=== PATIENT | female | born 1985 | race Caucasian/White ===

== ENCOUNTER → 2016-10-14 | Outpatient (CLI) | payer OTHER ==
[~2016-10-14] MED LIST: OMEG10007 PO; PRENTAB26 PO; RANI150T3 PO; SERT25TA PO
== END | disposition home or self-care (01) ==
LOC: C.LABSPEC 18:11
PROVIDERS: ATTEND Obstetrics & Gynecology
DX: Z34.03 Encounter for supervision of normal first pregnancy, third trimester (principal)

== ENCOUNTER 2016-10-23 03:32 | Outpatient (CLI) | payer OTHER ==
[~2016-10-23] VITALS: Ht 167.6 cm; Wt 65.5 kg
[2016-10-23 06:12] VITALS: Ht 167.6 cm; Wt 65.5 kg
[2016-10-23] MEDS ORDERED: PRENTAB26 PO (06:18)
[2016-10-23] MEDS ORDERED: SERT25TA PO (06:19)
[2016-10-23] MEDS ORDERED: OMEG10007 PO (06:21)
[2016-10-23] MEDS ORDERED: RANI150T3 PO (06:21)
--- NOTE | 2016-10-26 09:53 | EDITING REQUIRED CODING QUERY ---
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 Please assist us with the question(s) below: Coding Question: The patient received care in labor and delivery on 10/23/16 as noted within the record. Please document the diagnosis that is being addressed by the medication/treatment. Provider Response: DIAGNOSIS: Contractions (irregular) Thank you for your assistance, Liliana Severino - Liquor Maker
== END 2016-10-23 08:00 | disposition home or self-care (01) ==
LOC: C.OPB 03:32 → C.LD 03:34 → C.OPB 08:00
PROVIDERS: ATTEND Obstetrics & Gynecology
DX: O62.9 Abnormality of forces of labor, unspecified (principal); Z3A.38 38 weeks gestation of pregnancy

== ENCOUNTER 2016-10-23 17:39 | Outpatient (CLI) | payer OTHER ==
[~2016-10-23] VITALS: Ht 167.6 cm; Wt 65.0 kg
[~2016-10-23 17:39] MED LIST changes: +hydrOXYzine HCL 10 MG TAB PO SCH
[2016-10-23] MEDS ORDERED: LACTATED RINGER'S 1000ML 1,000 ML IV SCH (17:59)
[2016-10-23] MEDS ORDERED: LACTATED RINGER'S 1000ML 500 ML IV ONE (17:59)
[2016-10-23] MEDS ORDERED: PROMETHAZINE HCL INJ 25 MG in SODIUM CHLORIDE 0.9% 50ML 50 ML IV PRN (18:00)
[2016-10-23] MEDS ORDERED: BUTORPHANOL TARTRATE 1 MG/ML VIAL ONE (19:33)
[2016-10-23] MEDS ORDERED: PHENERGAN 25MG HOMEPACK PO ONE (20:45)
[2016-10-23] MEDS ORDERED: hydrOXYzine HCL 10 MG TAB PO PRN (20:45)
[2016-10-23] MEDS ORDERED: BUTORPHANOL TARTRATE 1 MG/ML VIAL IV ONE (21:00)
[2016-10-23 21:25] VITALS: Ht 167.6 cm; Wt 65.0 kg
== END 2016-10-23 21:02 | disposition home or self-care (01) ==
LOC: C.OPB 17:39 → C.LD 17:39 → C.OPB 21:02
PROVIDERS: ATTEND Obstetrics & Gynecology
DX: O62.9 Abnormality of forces of labor, unspecified (principal); Z3A.38 38 weeks gestation of pregnancy

== ENCOUNTER 2016-10-24 08:40 | Inpatient (IN) | payer OTHER ==
[~2016-10-24] VITALS: Ht 165.1 cm; Wt 65.8 kg
[~2016-10-24 08:40] MED LIST changes: -hydrOXYzine HCL 10 MG TAB PO SCH
[2016-10-24] MEDS ORDERED: BUPIVACAINE 0.25% 30 ML VIAL ONE (09:05)
[2016-10-24] MEDS ORDERED: EpHEDrine SULFATE INJ 50 MG/ML AMP ONE (09:05)
[2016-10-24] MEDS ORDERED: FENTANYL 2MCG/ML ROPIV 1.25MG/ML 100ML BAG EPI ONE (09:06)
[2016-10-24] MEDS ORDERED: FENTANYL CITRATE INJ 50 MCG/1 ML 2 ML VIAL ONE (09:06)
[2016-10-24] MEDS ORDERED: LACTATED RINGER'S 1000ML 1,000 ML IV PRN (09:08)
[2016-10-24] MEDS: LACTATED RINGER'S 1000ML 1,000 ML IV SCH ×2 (09:15→11:10)
[2016-10-24 09:30] LABS: HEMATOCRIT 38.9 % (37-47); MEAN CORPUSCULAR HEMOGLOBIN 31.7 pg (25-34); MEAN CORPUSCULAR HGB CONC 35.2 g/dl (32-36); MEAN PLATELET VOLUME 12.8 fL (7.4-10.4); PLATELET COUNT 137 K/uL (130-400); RED BLOOD COUNT 4.32 M/uL (4.2-5.4); WHITE BLOOD COUNT 12.58 K/uL (4.8-10.8)
[2016-10-24] MEDS ORDERED: LACTATED RINGER'S 1000ML 500 ML IV PRN (10:09)
[2016-10-24] MEDS ORDERED: NALOXONE HCL INJ 1 MG in SODIUM CHLORIDE 0.9% 1000ML 1,000 ML IV PRN ×4 (10:09)
[2016-10-24] MEDS ORDERED: NALOXONE HCL INJ 0.4 MG/1 ML VIAL/CARP IV PRN (10:15)
[2016-10-24] MEDS ORDERED: EpHEDrine SULFATE INJ 50 MG/ML AMP IV PRN (10:15)
[2016-10-24] MEDS ORDERED: FENTANYL 2MCG/ML ROPIV 1.25MG/ML 100ML BAG EPI PRN (10:15)
[2016-10-24] MEDS ORDERED: ONDANSETRON INJ 2 MG/ML 2 ML VIAL IV PRN (10:15)
[2016-10-24] MEDS ORDERED: DiphenhydrAMINE HCL 50 MG/ML VIAL IV PRN (10:15)
[2016-10-24] MEDS ORDERED: NALBUPHINE HCL INJ 10 MG/ML AMP IV PRN (10:15)
[2016-10-24] MEDS ORDERED: PROMETHAZINE HCL INJ 25 MG in SODIUM CHLORIDE 0.9% 50ML 50 ML IV PRN (10:15)
[2016-10-24 10:38] VITALS: Ht 165.1 cm; Wt 65.8 kg
[2016-10-24] MEDS ORDERED: CALCIUM CARBONATE 500 MG CHEWABLE ONE (11:29)
[2016-10-24] MEDS ORDERED: CALCIUM CARBONATE 500 MG CHEWABLE PO PRN (11:30)
[2016-10-24] MEDS ORDERED: OXYTOCIN 30 UNITS/500ML NSS IV ONE (13:54)
[2016-10-24] MEDS ORDERED: METHYLERGONOVINE MALEATE 0.2 MG/ML AMP ONE (14:57)
[2016-10-24] MEDS ORDERED: BENZOCAINE 20% AER SPR 82.5 GM CAN EXT PRN (15:15)
[2016-10-24] MEDS ORDERED: ACETAMINOPHEN 325 MG TAB PO PRN (15:15)
[2016-10-24] MEDS ORDERED: HYDROCORTISONE ACETATE 25 MG SUPP PR PRN (15:15)
[2016-10-24] MEDS ORDERED: SUPERCREAM 0.870 % 15GM JAR EXT PRN (15:15)
[2016-10-24] MEDS ORDERED: OXYCODONE/ACETAMINOPHEN 5-325 TAB PO PRN (15:15)
[2016-10-24] MEDS ORDERED: ACETAMINOPHEN/CODEINE 300/30MG TAB PO PRN ×2 (15:15)
[2016-10-24] MEDS ORDERED: DIPHTHERIA/TETANUS/PERTUSSIS 0.5 ML SYR/VIAL IM. ONE (15:15)
[2016-10-24] MEDS ORDERED: OXYTOCIN 30 UNITS/500ML NSS IV PRN (15:15)
[2016-10-24] MEDS ORDERED: LANOLIN OINT EXT PRN ×2 (15:15)
[2016-10-24] MEDS ORDERED: METHYLERGONOVINE MALEATE 0.2 MG/ML AMP IM SCH (15:30)
--- NOTE | 2016-10-24 15:37 | DELIVERY SUMMARY ---
DATE OF OPERATION: 10/24/2016 PREOPERATIVE DIAGNOSES: 1. Intrauterine at 38 and 2/7 weeks. 2. Active labor. POSTOPERATIVE DIAGNOSES: Same. PROCEDURES: 1. Epidural anesthesia. 2. Amniotomy. 3. Normal spontaneous vaginal delivery. SURGEON: Dr. Kaur. ANESTHESIA: Epidural. ESTIMATED BLOOD LOSS: 350 mL. DETAILS OF PROCEDURE: After a prolonged latent phase of labor, the patient presented to labor and delivery. I think she might have ruptured her bag of water but was found to be 5-6 cm dilated. She was admitted and underwent an epidural anesthesia. When she was 6-7 cm dilated, she underwent amniotomy for clear fluid. She became complete complete and +2 station. She labored down for 45 minutes and then pushed for less than 30 minutes to deliver a viable male in TADEO presentation. The nose and mouth were bulb suctioned. There was no nuchal cord. The rest of the infant was then delivered without difficulty. The nose and mouth were again bulb suctioned. The was placed on the maternal abdomen where the cord was clamped and cut. Cord blood was collected for the lab as well as for donation. Placenta was delivered spontaneously intact with a 3-vessel cord. Cervix, sulci, rectum and perineum were examined and found to be intact. Estimated blood loss was 350 mL. Hemostasis was obtained with dilute Pitocin, fundal massage and IM Methergine. Apgars were 8 and 9. Mother and baby doing well at the end of the delivery. I attest to the content of the Intraoperative Record and any orders documented therein. Any exceptio ns are noted below.
--- NOTE | 2016-10-24 16:56 | Anesthesia Procedure Note ---
Anesthesia Epidural Removal Nt Date & Time Oct 24, 2016 at 16:55 Vital Signs Pain Intensity: 0.0 Notes Mental Status: alert / awake / arousable, participated in evaluation Nausea / Vomiting: adequately controlled Pain: adequately controlled Airway Patency, RR, SpO2: stable & adequate BP & HR: stable & adequate Hydration State: stable & adequate Neuraxial Anesthesia: was administered Anesthetic Complications: no major complications apparent, pt satisfied with anesthetic care Epidural: removed without complications, with tip intact
[2016-10-24] MEDS: IBUPROFEN 600 MG TAB PO PRN (18:03)
[2016-10-24 18:10] VITALS: BP 116/72; PULSE 74; TEMP 36.5; O2SAT 99
[2016-10-24] MEDS: DOCUSATE SODIUM 100 MG CAP PO SCH (20:02)
[2016-10-24 20:10] VITALS: BP 110/73; PULSE 86; TEMP 36.7
[2016-10-24] MEDS ORDERED: NURSING VERBAL MED ORDER ONE (20:30)
[2016-10-24] MEDS: SERTRALINE HCL 50 MG TAB PO SCH (21:19)
[2016-10-24 23:35] VITALS: BP 117/82; PULSE 76; TEMP 36.6
[2016-10-25] MEDS: IBUPROFEN 600 MG TAB PO PRN ×2 (03:27→08:55)
[2016-10-25 03:30] VITALS: BP 117/75; PULSE 70; TEMP 36.6
[2016-10-25] MEDS ORDERED: CALCIUM CARBONATE 500 MG CHEWABLE PO PRN (03:45)
[2016-10-25] MEDS ORDERED: NURSING VERBAL MED ORDER ONE (03:45)
--- NOTE | 2016-10-25 06:48 | Progress Note ---
Subjective Oct 25, 2016. Subjective conversation w/ patient, physical exam, lab review Ambulation: ambulating normally Voiding: no voiding problems Passing Gas: Yes Diet Tolerance: Regular Diet Lochia: Small Feeding Type: Breast Feeding Pain: controlled Objective Vital Signs Date Time Temp Pulse Resp B/P Pulse Ox O2 Delivery O2 Flow Rate FiO2 10/25/16 03:30 36.6 70 20 117/75 10/24/16 23:35 36.6 76 16 117/82 Room Air 10/24/16 20:10 36.7 86 20 110/73 Room Air 10/24/16 18:10 36.5 74 16 116/72 99 Room Air Physical Exam General Appearance: WD/WN, NO APPARENT DISTRESS Respiratory/Chest: lungs clear, normal breath sounds Cardiovascular: regular rate, rhythm Abdomen: normal bowel sounds, non tender, soft Fundus: Firm, Non-Tender, Relation to Umbilicus (at u) Extremities: non-tender, normal inspection Laboratory Results Last 24 Hours Test 10/24/16 09:12 10/24/16 09:23 10/24/16 12:36 10/25/16 04:44 Bedside Glucose 120 mg/dl 89 mg/dl White Blood Count 12.58 K/uL Red Blood Count 4.32 M/uL Hemoglobin 13.7 g/dL Hematocrit 38.9 % Mean Corpuscular Volume 90.0 fL Mean Corpuscular Hemoglobin 31.7 pg Mean Corpuscular Hemoglobin Concent 35.2 g/dl RDW Standard Deviation 41.4 fL RDW Coefficient of Variation 12.6 % Platelet Count 137 K/uL Mean Platelet Volume 12.8 fL Assessment and Plan Post- Day#: 1 Continue Routine Care: Doing well. Routine care.
[2016-10-25 06:57] LABS: HEMATOCRIT 35.4 % (37-47)
[2016-10-25 07:50] VITALS: BP 106/71; PULSE 76; TEMP 36.3; O2SAT 97
[2016-10-25] MEDS: DOCUSATE SODIUM 100 MG CAP PO SCH ×2 (08:59→20:47)
[2016-10-25] MEDS: PRENATAL VITAMIN TAB PO SCH (08:59)
[2016-10-25 11:31] VITALS: BP 112/76; PULSE 79; TEMP 36.7; O2SAT 99
[2016-10-25 15:30] VITALS: BP 118/81; PULSE 75; TEMP 36.5
[2016-10-25] MEDS: SERTRALINE HCL 50 MG TAB PO SCH (20:48)
[2016-10-26 00:05] VITALS: BP 107/74; PULSE 74; TEMP 36.8; O2SAT 98
[2016-10-26] MEDS: IBUPROFEN 600 MG TAB PO PRN ×2 (00:11→08:21)
--- NOTE | 2016-10-26 06:54 | Progress Note ---
Subjective Oct 26, 2016. Subjective conversation w/ patient, physical exam Ambulation: ambulating normally Voiding: no voiding problems Passing Gas: Yes Diet Tolerance: Regular Diet Lochia: Small Feeding Type: Breast Feeding Pain: No pain reported this morning Review of Systems Constitutional: No chills, No fever Respiratory: No cough, No shortness of breath Cardiac: No chest pain Breast: No breast pain Abdomen: No nausea, No pain, No vomiting Female : No dysuria Objective Vital Signs Date Time Temp Pulse Resp B/P Pulse Ox O2 Delivery O2 Flow Rate FiO2 10/26/16 00:05 98 Room Air 10/26/16 00:05 36.8 74 16 107/74 98 Room Air 10/25/16 15:30 36.5 75 20 118/81 Room Air 10/25/16 15:30 Room Air 10/25/16 11:31 36.7 79 15 112/76 99 Room Air 10/25/16 07:50 Room Air 10/25/16 07:50 36.3 76 16 106/71 97 Room Air Physical Exam General Appearance: WELL-APPEARING, WD/WN, NO APPARENT DISTRESS Respiratory/Chest: lungs clear, normal breath sounds Cardiovascular: regular rate, rhythm, no gallop, no murmur Abdomen: non tender, soft Fundus: Firm, Relation to Umbilicus (1cm below) Extremities: no calf tenderness Medications Current Inpatient Medications Medications (Trade) Dose Ordered Sig/Marylou Route Start Time Stop Time Status Last Admin Dose Admin Oxytocin (Pitocin IV) 30 units UD PRN IV 10/24/16 15:15 11/23/16 15:14 Benzocaine (Dermoplast Aero Spr) 1 appln PRN PRN EXT 10/24/16 15:15 11/23/16 15:14 Cocaine HCl (Supercream 0.870% Cr) BID PRN EXT 10/24/16 15:15 11/07/16 15:14 Hydrocortisone Acetate (Anusol Hc Supp) 25 mg BID PRN TN 10/24/16 15:15 11/23/16 15:14 Lanolin (Lanolin Oint) PRN PRN EXT 10/24/16 15:15 11/23/16 15:14 Prenat Multivit/ 5Th Grade Teacher/Iron/Folic Ac ( Vitamin Tab) 1 tab DAILY PO 10/25/16 08:00 11/24/16 07:59 10/25/16 08:59 1 TAB Ibuprofen (Motrin Tab) 600 mg Q4H PRN PO 10/24/16 15:15 11/23/16 15:14 10/26/16 00:11 600 MG Acetaminophen (Tylenol Tab) 650 mg Q6H PRN PO 10/24/16 15:15 11/23/16 15:14 Acetaminophen/ Codeine Phosphate (Tylenol w/ Codeine #3 Tab) 1 tab Q4H PRN PO 10/24/16 15:15 11/23/16 15:14 Acetaminophen/ Codeine Phosphate (Tylenol w/ Codeine #3 Tab) 2 tab Q4H PRN PO 10/24/16 15:15 11/23/16 15:14 Docusate Sodium (coLACE CAP) 100 mg BID PO 10/24/16 20:00 11/23/16 19:59 10/25/16 20:47 100 MG Sertraline HCl (Zoloft Tab) 25 mg QPM PO 10/24/16 21:00 11/23/16 20:59 10/25/16 20:48 25 MG Calcium Carbonate (Tums Chew Tab) 1,000 mg PRN PRN PO 10/25/16 03:45 11/24/16 03:44 10/25/16 05:33 1,000 MG Assessment and Plan Post- Day#: 2 Continue Routine Care: - Vital Signs reviewed and WNL (temp max 36.8) - Blood Type: A-, GBS Negative, Rubella Immune - Patient doing well clinically - Encourage Ambulation today - Tolerating PO Diet - Pain well controlled - Discharge Resident Physician Supervision Note: I interviewed and examined the patient. Discussed with Dr. Chacon and agree with findings and plan as documented in the note. Any exceptions or clarifications are listed here: PPD#2, doing well. Discharge home Documented By: Judith Massey
--- NOTE | 2016-10-26 06:55 | Discharge Instructions ---
Discharge Instructions Admission Reason for Admission: R/O Ruptured Membrane Discharge Discharge Diagnosis / Problem: Vaginal Delivery Discharge Goals Goal(s): Routine recovery after delivery Medications Continue Dispensed Medications: supercream, dermaplast, tucks, lansinoh Activity Recommendations Activity Limitations: per Instructions/Follow-up section . Instructions / Follow-Up Instructions / Follow-Up ACTIVITY RECOMMENDATIONS: * Gradual return to full activity over the next 2-3 weeks. * No lifting - nothing heavier than baby over the next 2-3 weeks. * Do not engage in vigorous exercise, sexual activity or sports until cleared by your physician. * Do not drive or operate any motorized equipment until cleared by your physician. * You may shower/bathe daily. MEDICATIONS: For discomfort or pain, you may use Acetaminophen (Tylenol), Ibuprofen (Advil), or Naproxen (Aleve) following the package directions. For constipation you may use Colace following the package directions. BREAST CARE: If you are not breast feeding: * Wear a supportive bra 24 hours a day for one to two weeks. * Avoid stimulating your breasts and nipples as much as possible during the first few weeks after delivery. * When taking a shower, have the warm water hit your back, not breasts. * When your breasts feel full, apply ice packs. Usually three to four times a day helps ease the discomfort. * Take a mild pain medication (Tylenol / Motrin) when you are uncomfortable. If breast feeding: * Use breast milk to lubricate nipples. Lansinoh cream may be used for sore nipples. You do not need to remove cream prior to breast feeding. If using a different brand of cream, check the label for directions regarding removal of cream prior to nursing. * Wear a supportive bra. * If having problems with breasts or breast feeding, call a outbound sales consultant or your health care provider. EPISIOTOMY CARE: After delivery, if you have an episiotomy (stitches), the following steps will ease discomfort and aid healing. * For the first 24 hours after delivery, place ice packs next to your episiotomy to help reduce swelling. * After the first 24 hour-period, sitz baths, either portable or in the tub, are suggested. A shower with a shower arm sprayed over the episiotomy may be comforting. * Leslee care should be done after each voiding and bowel movement. Squirt warm water from a plastic bottle over the perineum (region of the body between the anus and urinary opening) and pat dry. * Use Dermoplast to ease discomfort. Shake container. [place] directly over the episiotomy. Place a Tucks on a clean sanitary pad next to your episiotomy. SPECIAL CARE INSTRUCTIONS: When you are discharged from the hospital, it is important for you to follow the instructions listed below: * During the first week at home, you should be able to care for yourself and your baby. In addition, the usual light household activities are encouraged. * Limit your activities to the way you feel. Do not try to clean the house or move furniture. Be sensible. * If you actively engage in sports and have done so up until the time of your delivery, you may resume these activities as soon as you feel able. This may take up to one month or even longer. Use good judgment. * Continue to take your vitamins for at least six weeks after the of your baby. * Your diet need not be limited unless you were on a special diet before your delivery. Breast-feeding mothers need around 2500 calories per day and at least 64-80 ounces of fluid per day (8 to 10 glasses). * You should eat foods from the four major food groups. Crash diets or fad diets are to be avoided. Eating lean meats, fresh fruits and vegetables, low-fat dairy products, high fiber foods and a regular exercise program, will help you get back to your pre- weight without putting your health at risk. * Constipation is sometimes a problem after delivery. Take a mild laxative as needed. If breast feeding, Milk of Magnesia is acceptable to use. You may use a suppository or Fleets enema if no episiotomy. * A daily shower or tub bath is suggested. Be sure to thoroughly and gently dry the perineum. * A bloody vaginal discharge will usually continue until around four weeks post . A small amount of bleeding may continue for as long as six weeks. Vaginal discharge changes from the bright red bleeding after delivery to pink then brownish and finally yellowish-pink before becoming white and disappearing. * Bleeding may increase with activity. Your first period may come in 4-8 weeks. If you are breast feeding, your period may be delayed even longer. * [place] (sex) can begin whenever both you and your partner feel comfortable and do not have any form of genital infection. It is recommended that you wait at least six weeks for internal and external healing to occur. If you have questions, please talk to your health care practitioner. A condom should be used to prevent infection and . * Foreplay, gentle intercourse and lubrication is very important the first several times to prevent pain. A water-based lubricant such as K-Y jelly or Astroglide may be used. * If you have RH negative blood and your baby is RH positive, you will receive RHOGAM by injection prior to discharge. The nurse will give you a card to keep with you that has the date and place that you received RHOGAM after delivery. * During your care, you had a Rubella screen done to check for the presence of rubella antibodies in your blood. If your test was negative, you will receive a Rubella vaccine prior to discharge. This vaccine may cause a fever, soreness at the injection site and flu-like symptoms. If these symptoms persist, notify your health care practitioner. is not advised for one month after a Rubella vaccine. * Verbalizes understanding of car seat law as reviewed with patient nursing. * Car Seat hand-out given and reviewed with patient by nursing. * Shaken baby information reviewed with patient by nursing. Call you doctor if: * Heavy bleeding (saturating several pads an hour) or passing clots the size of your fist. * A fever >101 degrees F (38.3 degrees C) on two occasions four hours apart and /or chills. * Unusual pain in the pelvic or vaginal areas. * "Baby Blues" lasting longer than two weeks. If you have any questions or concerns, call your health care practitioner at . FOLLOW UP VISIT: * Please call the office at to schedule a 6 week examination. It is important you keep this appointment. It is important for you to make arrangements for either yearly or twice yearly check-ups thereafter. Current Hospital Diet Patient's current hospital diet: Regular OB Diet Discharge Diet Recommended Diet: Regular Diet Pending Studies Studies pending at discharge: no Medical Emergencies . Who to Call and When: Medical Emergencies: If at any time you feel your situation is an emergency, please call 911 immediately. . Non-Emergent Contact Non-Emergency issues call your: Coding Coordinator . . "Provider Documentation" section prepared by Beto Chacon. VTE Core Measure Inpt VTE Proph given/why not?: Treatment not indicated
[2016-10-26 07:26] VITALS: BP 112/76; PULSE 81; TEMP 36.7; O2SAT 97
[2016-10-26 08:10] VITALS: O2SAT 97
[2016-10-26] MEDS: PRENATAL VITAMIN TAB PO SCH (08:20)
[2016-10-26] MEDS: DOCUSATE SODIUM 100 MG CAP PO SCH (08:20)
[2016-10-26 11:50] VITALS: BP_DIAS 76; PULSE 81; TEMP 36.7
== END 2016-10-26 09:45 | disposition home or self-care (01) | DRG 775 ==
LOC: C.OPB 08:40 → C.LD 08:41 → C.OPB 09:09 → C.OBG 17:58 → EDSTATUS 11-05 08:38
PROVIDERS: ADMIT Obstetrics & Gynecology; ATTEND Obstetrics & Gynecology
PROC: 10E0XZZ Delivery of Products of Conception, External Approach (ICD-10-PCS; principal; 2016-10-24)
DX: O63.0 Prolonged first stage (of labor) (principal); O24.410 Gestational diabetes mellitus in pregnancy, diet controlled; Z37.0 Single live birth; Z3A.38 38 weeks gestation of pregnancy

== ENCOUNTER → 2016-12-14 | Outpatient (CLI) | payer OTHER ==
[~2016-12-14] MED LIST changes: -OMEG10007 PO; -RANI150T3 PO
== END | disposition home or self-care (01) ==
LOC: C.LAB 07:10
PROVIDERS: ATTEND Obstetrics & Gynecology
DX: O24.410 Gestational diabetes mellitus in pregnancy, diet controlled (principal); Z3A.00 Weeks of gestation of pregnancy not specified

== ENCOUNTER → 2018-02-01 | Outpatient (CLI) | payer OTHER | END | disposition home or self-care (01) | LOC: C.LABSPEC 11:14 | PROVIDERS: ATTEND Obstetrics & Gynecology | DX: O24.419 Gestational diabetes mellitus in pregnancy, unspecified control (principal); Z3A.00 Weeks of gestation of pregnancy not specified ==

== ENCOUNTER → 2018-02-08 | Outpatient (CLI) | payer OTHER ==
[2018-02-08 15:04] LABS: BASO % 0.1 %; BASO ABS # 0.01 K/uL (0-0.2); EOS % 0.4 %; EOS ABS # 0.03 K/uL (0-0.5); HEMOGLOBIN 14.3 g/dL (12.0-16.0); IG# 0.01 K/uL (0.00-0.02); LYMPH % 20.7 %; LYMPH ABS # 1.61 K/uL (1.2-3.4); MEAN CELL VOLUME 87.6 fL (80-100); MEAN CORPUSCULAR HEMOGLOBIN 30.6 pg (25-34); MEAN CORPUSCULAR HGB CONC 34.9 g/dl (32-36); MEAN PLATELET VOLUME 11.7 fL (7.4-10.4); MONO % 5.8 %; MONO ABS # 0.45 K/uL (0.11-0.59); NEUT % 72.9 %; NEUT ABS # 5.66 K/uL (1.4-6.5); PLATELET COUNT 174 K/uL (130-400); RED CELL DISTRIBUTION WIDTH CV 12.5 % (11.5-14.5); RED CELL DISTRIBUTION WIDTH SD 39.7 fL (36.4-46.3); WHITE BLOOD COUNT 7.77 K/uL (4.8-10.8)
== END | disposition home or self-care (01) ==
LOC: C.LAB1850 12:29
PROVIDERS: ATTEND Obstetrics & Gynecology
DX: O24.419 Gestational diabetes mellitus in pregnancy, unspecified control (principal)

== ENCOUNTER → 2018-04-12 | Outpatient (CLI) | payer OTHER | END | disposition home or self-care (01) | LOC: C.LAB1850 11:56 | PROVIDERS: ATTEND Obstetrics & Gynecology | DX: O24.419 Gestational diabetes mellitus in pregnancy, unspecified control (principal); Z3A.00 Weeks of gestation of pregnancy not specified ==

== ENCOUNTER 2021-09-06 02:31 | Inpatient (IN) ==
[2021-09-06] MEDS ORDERED: OXYTOCIN 30 UNITS/500 ML BAG IV PRN ×2 (02:59→07:54)
--- NOTE | 2021-09-06 03:06 | History & Physical Report ---
Date of Service September 06, 2021 Assessment & Plan (1) Supervision of elderly multigravida: (2) Gestational diabetes mellitus (GDM) affecting , antepartum: (3) Need for rhogam due to Rh negative mother: (4) SROM (spontaneous rupture of membranes): Plan: Admit, iv, labs. early labor. will check lfts given dbp on arrival. fhts categ 1. some cough sx noted, appropriate covid test ordered. likely will desire epidural. bsg now and then q2hr in labor. anticip . rhogam eval pp. History of Present Illness Chief Complaint: leaking since 11pm 09/05/21 and contractions Primary Care Provider: Josafat Louis MD 36yo at 37+wks ega presents to L&D with above cc. Initial gush of clear fluid around 11pm on 09/05/21 and then recurred few times. Last time with wiping saw pink and called. Also noted ctx q3-5min and recommended evaluation on L&D. Currently ctx are about 3min apart, she says not very painful just alot of low pressure with the ctx. +FM. PNC c/b 1. GDM on insulin, does take night time nph and took tonight. last growth aga efw 50% 2. AMA 3. RH neg 4. Prior c/b IUGR 5. Transfer of care to us at 33wks PNL Rhneg, RI, GBS neg OBH: x 2 GYNH: nl paps no stds Allergies Allergy/AdvReac Type Severity Reaction Status Date / Time No Known Allergies Allergy Verified 08/27/21 09:40 Home Medications Medication Instructions Recorded Confirmed Type doxylamine succinate 25 mg tablet 25 mg PO Q6H PRN 07/30/21 08/27/21 History (Unisom (doxylamine)) famotidine 20 mg tablet 20 mg PO BID 07/30/21 08/27/21 History prenat.vits,fabian,[id number]-[id number] 1 tab PO DAILY 07/30/21 08/27/21 History sertraline 25 mg tablet (Zoloft) mg PO 07/30/21 08/27/21 History insulin glargine 100 unit/mL 10 unit SUBCUT QPM 08/05/21 08/27/21 History subcutaneous solution (Lantus U-100 Insulin) Patient History Medical History (Updated 09/06/21 @ 03:04 by Renetta Almeida MD, FACOG) Diet controlled gestational diabetes mellitus (GDM) in third trimester IUGR, Surgical History (Updated 08/05/21 @ 17:36 by Danette Paula MD) H/O oral surgery History of breast biopsy Family History (Updated 07/30/21 @ 11:33 by Liudmila Tan) Grandmother (Paternal) Alzheimer disease Grandmother (Maternal) Hypertension Grandfather (Paternal) Heart disease Mother Hypertension Dyslipidemia Social History (Updated 07/30/21 @ 13:45 by Liudmila Tan) Smoking Status: Never smoker marital status: marital status details: Dwayne (35) [phone] Current Living Situation: Spouse Current Living Situation Comment: lives with spouse and children, no pets current occupational status: employed 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 @ [employer] Review of Systems as per Subjective / HPI Physical Exam Constitutional: WD/WN, vitals as above Gastrointestinal (Abdomen): soft gravid nt Musculoskeletal: no edema nontender calves Neurologic: grossly normal Psychiatric: A+Ox3, euthymic affect Genitourinary: Manual OB Exam: + cervical dilation 3 cm, + cervical effacement (75%), + station 0 and + amniotic fluid (+gross srom) clear and nitrazine positive OB Exam Monitor Tracing: + external FHT monitor used, + external uterine monitor used (q3), + category I and + normal FHT variability Results & Data ([facility]) Vital Signs (Past 12 Hours) Vital Signs Temp Pulse Resp BP 09/06/21 02:41 97.9 F 18 09/06/21 02:40 67 128/93 Coding Level of Care Code None Diagnoses Supervision of elderly multigravida O09.529 Gestational diabetes mellitus (GDM) affecting , antepartum O24.419 Need for rhogam due to Rh negative mother Z29.13 SROM (spontaneous rupture of membranes)
[2021-09-06] MEDS ORDERED: SODIUM CHLORIDE 0.9% INJ 10 ML VIAL ONE (03:45)
[2021-09-06] MEDS: LACTATED RINGER'S 1,000 ML IV PRN ×2 (03:45→06:12)
[2021-09-06] MEDS ORDERED: ePHEDrine sulfate 50 MG/ML AMP ONE (03:45)
[2021-09-06] MEDS ORDERED: BUPIVACAINE 0.25% 30 ML VIAL ONE (03:46)
[2021-09-06] MEDS ORDERED: fentaNYL 2MCG/ML ROPIVACAINE 1.25MG/ML 100 ML BAG EPI ONE (03:47)
[2021-09-06] MEDS ORDERED: fentaNYL citrate 100 MCG/2 ML VIAL ONE (03:47)
[2021-09-06 04:03] LABS: Hematocrit (blood only) 40.2 % (37-47); Hemoglobin 13.8 g/dL (12.0-16.0); Mean Corpuscular Hemoglobin 30.9 pg (25-34); Mean Corpuscular Hgb Conc 34.3 g/dL (32-36); Mean Corpuscular Volume 90.1 fL (80-100); Mean Platelet Volume 12.1 fL (7.4-10.4); Platelet Count 130 K/uL (130-400); RDW Coefficient of Variation 12.3 % (11.5-14.5); RDW Standard Deviation 40.2 fL (36.4-46.3); Red Blood Count 4.46 M/uL (4.2-5.4); White Blood Count 6.08 K/uL (4.8-10.8)
[2021-09-06 04:04] LABS: Platelet Estimate Decreased (Normal)
[2021-09-06 04:06] LABS: Alanine Aminotransferase 39 (12-78); Albumin Globulin Ratio 0.7 (0.9-2); Albumin Level 2.6 gm/dl (3.4-5.0); Alkaline Phosphatase 162 U/L (45-117); Aspartate Aminotransferase 34 U/L (15-37); BUN Creatinine Ratio 18.1 (10-20); Bilirubin,Total 0.3 mg/dl (0.2-1); Blood Urea Nitrogen 15 mg/dl (7-18); Calcium 8.9 mg/dl (8.5-10.1); Carbon Dioxide 23 mmol/L (21-32); Chloride 108 mmol/L (98-107); Creatinine Clr Calc Pharmacy 90.7 ml/min; Est GFR (African American) 109.1 ml/min; Est GFR (Non-African American) 94.1 ml/min; Glucose 84 mg/dl (70-99); Potassium 3.8 mmol/L (3.5-5.1); Sodium 138 mmol/L (136-145); Total Protein 6.6 gm/dl (6.4-8.2)
[2021-09-06 04:12] LABS: Influenza A virus by PCR Negative (Neg); Influenza B virus by PCR Negative (Neg); RSV by PCR Negative (Neg); SARS CoV2 RNA(COVID-19) InHosp NEGATIVE (Negative)
[2021-09-06] MEDS ORDERED: ONDANSETRON INJ 2 MG/ML 2 ML VIAL IV PRN (04:18)
[2021-09-06] MEDS ORDERED: NALBUPHINE HCL INJ 10 MG/ML AMP IV PRN (04:18)
[2021-09-06] MEDS ORDERED: fentaNYL 2MCG/ML ROPIVACAINE 1.25MG/ML 100 ML BAG EPI PRN (04:18)
[2021-09-06] MEDS ORDERED: NALOXONE HCL 1 MG in SODIUM CHLORIDE 0.9% 1000ML 1,000 ML IV PRN (04:18)
[2021-09-06] MEDS ORDERED: ePHEDrine sulfate 50 MG/ML AMP IV PRN (04:18)
[2021-09-06] MEDS ORDERED: NALOXONE HCL 0.4 MG/1 ML VIAL/CARP IV PRN (04:18)
[2021-09-06] MEDS ORDERED: diphenhydrAMINE 50 MG/ML VIAL IV PRN (04:18)
--- NOTE | 2021-09-06 04:18 | Anesthesiology Consultation ---
Date of Service September 06, 2021 Assessment & Plan ASA ASA3 Proposed Anesthesia Anesthesia Type: Labor Epidural Risk / Benefits Reviewed With: PT / POA / Parent / Guardian, Accepts Plan and Informed Consent Obtained History Height/Weight Height: 5 ft 6 in Weight: 66.224 kg Allergies Allergy/AdvReac Type Severity Reaction Status Date / Time No Known Allergies Allergy Verified 08/27/21 09:40 Medications Home Medications Medication Instructions Recorded Confirmed Last Taken doxylamine succinate 25 mg tablet 25 mg PO Q6H PRN 07/30/21 09/06/21 09/05/21 (Unisom (doxylamine)) famotidine 20 mg tablet 20 mg PO BID 07/30/21 09/06/21 09/05/21 prenat.vits,fabian,[id number] 1 tab PO DAILY 07/30/21 09/06/21 09/05/21 sertraline 25 mg tablet (Zoloft) 25 mg PO DAILY 07/30/21 09/06/21 09/05/21 insulin glargine 100 unit/mL 10 unit SUBCUT QPM 08/05/21 09/06/21 09/05/21 subcutaneous solution (Lantus U-100 Insulin) Active Medications Generic Name Dose Route Start Last Admin Trade Name Freq PRN Reason Stop Dose Admin Lactated Ringer's 1,000 mls @ 125 mls/hr 09/06/21 02:59 09/06/21 04:31 Lr IV 09/08/21 02:58 125 mls/hr .Q8H PRN Infusion L&D Protocol Protocol Ropivacaine 100 ml 09/06/21 04:18 09/06/21 04:35 Fentanyl 2mcg/Ml Ropivacaine 1.25mg/Ml 100 Ml Bag EPI 09/07/21 04:17 100 ml PRN PRN Administration Pain R/T Labor Protocol Past Medical History Medical History Diet controlled gestational diabetes mellitus (GDM) in third trimester IUGR, Exercise / Class Metabolic Activity II 4-5 Yardwork/Stairs/Walk up hill Past Family History Family History (Updated 07/30/21 @ 11:33 by Liudmila Tan) Grandmother (Paternal) Alzheimer disease Grandmother (Maternal) Hypertension Grandfather (Paternal) Heart disease Mother Hypertension Dyslipidemia Past Surgical History Surgical History (Updated 08/05/21 @ 17:36 by Danette Paula MD) H/O oral surgery History of breast biopsy Past Anesthesia History No Hx of Anesthesia Complications and No Family Hx of Anesthesia Complications History of PONV No Hx of PONV and No Hx of Motion Sickness Social History Smoking Status: Never smoker Hx Alcohol Use: No Hx Substance Use: No Review of Systems denies fever/cough/ colds/ chest pain/ SOB/ COLIN denies COLIN Physical Exam Vital Signs Last Vital Signs Temp 36.9 C 09/06/21 04:45 Pulse 89 09/06/21 04:51 Resp 18 09/06/21 04:45 BP 131/94 09/06/21 04:51 Pulse Ox 99 09/06/21 04:48 ENMT Mouth: no TMJ abnormality and no dentition abnormality Thyromental Distance: > or= 3.5 Finger Breadths Mallampati Class: II Neck neck extension not limited Respiratory normal respiratory effort; no respiratory distress Auscultation: lungs clear to auscultation bilaterally Cardiovascular Rate/Rhythm: regular rate and regular rhythm Neurologic moves all extremities Psychiatric Orientation: alert and oriented x 3 Testing Laboratory Results 09/06/21 03:34 09/06/21 03:34 09/06/21 03:18 POC Glucose 89
--- NOTE | 2021-09-06 07:44 | Delivery Summary ---
Vaginal Delivery Summary Date of Service September 06, 2021 Vaginal Delivery Summary The patient dilated to complete and pushed to deliver a viable female Apgars 9 and 10 via over intact perineum. Mouth and nose bulb suctioned at perineum. Shoulders and body delivered with ease. was vigorous and crying at . Cord clamped at 30 seconds of life and to maternal abdomen where the cord was then doubly clamped and cut. Placenta delivered spontaneously and intact, three-vessel cord. Hemostasis achieved with dilute pitocin and uterine massage and drainage of the bladder for approximately 100 cc under sterile conditions. Cervix and sulci intact. EBL 300 cc. Mother and baby stable recovery. [facility] Vaginal Delivery Charge Delivery Type Details:
[2021-09-06] MEDS ORDERED: IBUPROFEN 600 MG TAB PO PRN (07:54)
[2021-09-06] MEDS ORDERED: HYDROCORTISONE ACETATE 25 MG SUPP PR PRN (07:54)
[2021-09-06] MEDS ORDERED: OXYTOCIN 20 UNITS in LACTATED RINGER'S 1,000 ML IV SCH (07:54)
[2021-09-06] MEDS ORDERED: ACETAMINOPHEN 325 MG TAB PO PRN (07:54)
[2021-09-06] MEDS ORDERED: BENZOCAINE 20% AER SPR 82.5 GM CAN EXT PRN (07:54)
[2021-09-06] MEDS ORDERED: SUPERCREAM 0.870% 15 GM JAR EXT PRN (07:54)
[2021-09-06] MEDS ORDERED: oxyCODONE/ACETAMINOPHEN 5mg/325mg TAB PO PRN (07:54)
[2021-09-06] MEDS ORDERED: DIPHTHERIA/TETANUS/PERTUSSIS 0.5 ML SYR/VIAL IM ONE (07:54)
[2021-09-06] MEDS ORDERED: SERTRALINE HCL 50 MG TABLET PO SCH ×3 (09:00→20:00)
[2021-09-06] MEDS: FAMOTIDINE 20 MG TAB PO SCH ×2 (09:13→23:17)
[2021-09-06] MEDS: PRENATAL VITAMIN 1 TAB PO SCH (09:16)
[2021-09-06] MEDS ORDERED: Nursing to Pharmacy Communication SCH (09:30)
--- NOTE | 2021-09-06 09:40 | Anesthesia Procedure Note ---
Date of Service September 06, 2021 Anesthesia Post Epidural Note Vital Signs Vital Signs: Temp Pulse Resp BP Pulse Ox 97.9 F 70 20 103/64 99 09/06/21 07:09 09/06/21 09:39 09/06/21 07:09 09/06/21 09:39 09/06/21 07:38 Notes Mental Status: alert / awake / arousable and participated in evaluation Nausea / Vomiting: adequately controlled Pain: adequately controlled Airway Patency, RR, SpO2: stable & adequate BP & HR: stable & adequate Hydration State: stable & adequate Neuraxial Anesthesia: was administered and sensory block is resolving Anesthetic Complications: no major complications apparent and Pt Satisfied with anesthetic care Epidural: Removed without complications and With tip intact
[2021-09-06] MEDS: DOCUSATE SODIUM 100 MG CAP PO SCH ×2 (11:48→20:50)
--- NOTE | 2021-09-07 07:28 | Obstetrical Progress Note ---
Date of Service September 07, 2021 Assessment & Plan (1) Normal spontaneous vaginal delivery: Plan: 36 yo , now PPD 1 s/p at 37 weeks -Expect D/c today -Continue routine care -Vitals reviewed- HDS, afebrile -A- blood, GBS, Rubella immune. Received RhoGam. -Encourage ambulation, regular diet -Pain control with ibuprofen, acetaminophen PRN -Encourage -F/u in [address] Almeida Admission and Anticipated Discharge Date Admission Date: September 06, 2021 Supervising Physician Co-Signing Physician Notes Resident Physician Supervision Note: I interviewed and examined the patient. Discussed with Dr. Moreno and agree with findings and plan as documented in the note. Any exceptions or clarifications are listed here: doing well, eating, voiding, good pain control, breast feeding, had rhogam. desires d/c today. breast pump script given. f/u 6wk pp check. instructions reviewed. Documented By: Renetta Almeida MD, FACOG Subjective PPD 1 s/p . Patient seen and examined at bedside. Reports no acute overnight events. Ambulating and voiding. Passing gas and stool. Regular diet w/o N/V. Lochia small per patient. Breast feeding w/o complication. Pain 2/10. Review of Systems Review of Systems: Denies fevers/chills. Denies dyspnea, cough. Denies chest pain. Denies breast pain or discharge. Denies dysuria. Denies headache. Denies back pain. Physical Exam Physical Exam: General: Alert, oriented, no acute distress Cardiac: Regular rate and rhythm, normal S1, S2. No murmurs appreciated. Respiratory: Clear to auscultation b/l with good air flow entry, symmetric chest rise and fall. No wheezes or crackles. No increased work of breathing or accessory muscle use Abdomen: Soft, nontender, nondistended. Fundus firm and palpable at 2 cm below umbilicus. No guarding or rebound. Skin: No rashes or lesions Extremities: Warm, dry, well-perfused with capillary refill <2s b/l. No lower extremity edema, erythema or swelling. Negative Marie's sign b/l. Results & Data ([facility]) Vital Signs (Past 12 Hours) Vital Signs Temp Pulse Pulse Resp BP Pulse Ox 09/07/21 07:05 36.8 C 88 12 120/89 97 09/07/21 04:00 36.5 C 88 18 123/85 09/06/21 22:50 36.8 C 66 18 121/81
[2021-09-07] MEDS: PRENATAL VITAMIN 1 TAB PO SCH (08:59)
== END 2021-09-07 10:10 | disposition home or self-care (01) | DRG 807 ==
LOC: OPB 02:31 → 4S1 02:34 → 4S2 12:18